=== PATIENT | female | born 1995 | race Caucasian/White ===

== ENCOUNTER 2016-07-07 20:15 | Emergency (ER) | payer MEDICAID ==
[2016-07-07 21:42] LABS: Hematocrit 38.6 % (37.0-47.0); Hemoglobin 13.4 gm/dL (12.5-16.0); Mean Cell Volume 95.8 fl (78-100); Mean Corpuscular Hemoglobin 33.3 pg (27-31); Mean Corpuscular Hgb Conc 34.7 g/dl (32-36); Mean Platelet Volume 9.7 fl (6.0-9.5); Neutrophil # 5.2 K/mm3 (1.3-6.0); Neutrophil % 68.5 % (42-75.0); Platelet Count 262 K/mm3 (150-450); Red Blood Count 4.03 M/mm3 (4.2-5.4); Red Cell Distribution Width 11.9 % (11.5-14.0); White Blood Count 7.5 K/mm3 (4.0-10.5)
[2016-07-07 21:53] LABS: Urine Bilirubin Negative (NEGATIVE); Urine Blood Negative /ul (NEGATIVE); Urine Ketone Negative (NEGATIVE); Urine Nitrite Negative (NEGATIVE); Urine Protein Negative (NEGATIVE); Urine Urobilinogen Normal (NORMAL)
[2016-07-07 21:56] LABS: Albumin * 4.2 gm/dl (3.4-5.0); Anion Gap 14.8 mmol/L (6.8-13.8); BUN/Creatinine Ratio 11.2 (9.0-21.6); Bilirubin, Total 0.4 mg/dL (0.0-1.1); Ca. Corrected For Albumin 8.7 mg/dL (8.4-10.2); Calcium * 9.2 mg/dL (7.9-10.9); Carbon Dioxide 24.6 mmol/L (24-32.6); Potassium 3.4 mmol/L (3.4-4.6); Total Protein 7.7 gm/dL (6.2-8.2)
[2016-07-07 21:59] LABS: Urine Appearance Clear; Urine Color Yellow
[2016-07-07 22:00] LABS: Urine Bacteria 1+; Urine RBC None Seen /hpf (0-5); Urine WBC None Seen /hpf (0-5)
--- NOTE | 2016-07-07 22:12 | ERNOTE ---
Abdominal HPI - General Chief Complaint: Abdominal Pain Time Seen by Provider: 07/07/16 21:55 Source: patient Exam Limitations: no limitations - Immun/Allergies/Home Medications Immunizatons: IMMUNIZATION HX Immunizations Up to Date Yes History of Influenza Vaccine Yes Allergies/Adverse Reactions: Allergies ketorolac tromethamine [From Toradol] Allergy (Verified 07/07/16 20:49) tramadol Allergy (Verified 07/07/16 20:49) Home Medications: HOME MEDICATIONS FLUoxetine HCL [Prozac] 20 mg PO DAILY 08/29/15 [Last Taken Unknown] Levothyroxine Sodium [Tirosint] 100 mcg PO DAILY 07/07/16 [Last Taken Unknown] - History of Present Illness Narrative: Pt states she has had abdominal pain since last night, worsening today accompanied by n/v Timing: constant, getting worse Quality: moderate, severe Activities at Onset: none Prior Treatment: Present: recently seen - At [facility] in [facility]. Diagnosed with a "mass in my uterus" Review of Systems - Review of Systems Constitutional: Present: no symptoms reported EYE: Present: no symptoms reported ENT: Present: no symptoms reported Gastrointestinal/Abdominal: Present: See HPI, nausea, vomiting, diarrhea - today , eating less, drinking less Genitourinary: Absent: frequency, dysuria Musculoskeletal: Present: no symptoms reported Skin: Present: no symptoms reported Neurological: Present: no symptoms reported Endocrine: Present: no symptoms reported Hematologic/Lymphatic: Present: no symptoms reported Psych: Present: no symptoms reported - Patient's Past Medical History Patient History - Medical: Anxiety, Hypothyroidism Patient History - Cancer: No Hx of Cancer Patient History - Surgical Procedures: Other - Social History Living Situations: home Smoking Status: Current every day smoker Alcohol Use: none Drug Use: none Physical Exam - Physical Exam General Appearance: Present: wd/wn, alert, no apparent distress Ears, Nose, Throat: Present: normal ENT inspection, hearing grossly normal Neck: Present: normal inspection, nontender Respiratory: Present: no respiratory distress, normal breath sounds, no accessory muscle use, lungs clear Cardiovascular/Chest: Present: regular rate, rhythm, no murmur, normal peripheral pulses Gastrointestinal/Abdominal: Present: tenderness - diffuse b/l lower quads . Absent: distended, guarding, rebound Back Exam: Present: normal inspection, no CVA tenderness Extremity Exam: Present: normal inspection, non-tender, normal range of motion Neurological Exam: Present: alert, oriented, normal mood/affect, no motor/ sensory deficits Skin Exam: Present: normal color, warm/dry Lymphatic Exam: Present: no adenopathy ED Progress - Results and Orders Patient's Lab Results:: I have reviewed the patient's lab results. Results and Orders: Laboratory Tests 07/07/16 07/07/16 07/07/16 21:23 21:35 21:35 WBC 7.5 Hgb 13.4 Hct 38.6 Plt Count 262 Sodium 141 Potassium 3.4 Chloride 105 Carbon Dioxide 24.6 BUN 10 Creatinine 0.89 Random Glucose 118 H Calcium 9.2 Total Bilirubin 0.4 AST 17 ALT 30 Alkaline Phosphatase 81 Total Protein 7.7 Albumin 4.2 Amylase 72 Lipase 208 Serum HCG, Qual Urine Color Yellow Urine Appearance Clear Urine pH 6.0 Ur Specific [place] 1.020 Urine Protein Negative Urine Glucose (UA) Negative Urine Ketones Negative Urine Blood Negative Urine Nitrate Negative Urine Bilirubin Negative Urine Urobilinogen Normal Ur Leukocyte Esterase Negative Urine RBC None seen Urine WBC None seen Ur Epithelial Cells 0-5 Urine Bacteria 1+ H Urine Culture Comments No culture indicated 07/07/16 21:35 WBC Hgb Hct Plt Count Sodium Potassium Chloride Carbon Dioxide BUN Creatinine Random Glucose Calcium Total Bilirubin AST ALT Alkaline Phosphatase Total Protein Albumin Amylase Lipase Serum HCG, Qual Negative Urine Color Urine Appearance Urine pH Ur Specific [place] Urine Protein Urine Glucose (UA) Urine Ketones Urine Blood Urine Nitrate Urine Bilirubin Urine Urobilinogen Ur Leukocyte Esterase Urine RBC Urine WBC Ur Epithelial Cells Urine Bacteria Urine Culture Comments - Vital Signs Patient's Vital Signs:: I have reviewed the patient's vital signs. Vital Signs: Vital Signs 07/07/16 07/07/16 20:45 21:11 Temperature 36.6 C 36.6 C Pulse Rate 95 104 H Respiratory 18 16 Rate Blood Pressure 136/86 127/88 O2 Sat by Pulse 100 99 Oximetry - X-Ray X-Ray #1 X-Ray: abdomen Interpretation: Interp. by me X-ray Comments: Moderate stool retention especially on the right side/ ascending colon. Hyperdensities within the bowel possible pill fragments - Progress/Reassessment Chief Complaint: Abdominal Pain Progress:: Unchanged Progress Note-Subjective: Pt. given Milk of Magnesia prior to ED discharge Departure - Departure Clinical Impression: Constipation Qualifiers: Constipation type: slow transit constipation Qualified Code(s): K59.01 - Slow transit constipation Disposition: Home self-care Condition: Good Instructions: Constipation, Adult, [id number] Additional Instructions: If you do not have results from the milk of magnesia by morning then try taking your miralax twice a day for a couple of days to help you bowels move. See your regular doctor if not improving
[2016-07-07] MEDS ORDERED: DICYCLOMINE HCL 10 MG/ML AMPUL IM ONE (23:57)
[2016-07-07] MEDS ORDERED: MAGNESIUM HYDROXIDE 30 ML UDC PO ONE (23:58)
[2016-07-08] MEDS ORDERED: DICYCLOMINE HCL 10 MG/ML AMPUL IM ONE (00:04)
[2016-07-08] MEDS ORDERED: MAGNESIUM HYDROXIDE 30 ML UDC ONE (00:04)
[2016-07-08 00:21] VITALS: BP 132/84
== END 2016-07-08 00:20 | disposition home or self-care (01) ==
LOC: ER 20:15
DX: K59.01 Slow transit constipation (principal); F17.210 Nicotine dependence, cigarettes, uncomplicated; E03.9 Hypothyroidism, unspecified